=== PATIENT | female | born 1990 | race Caucasian/White ===

== ENCOUNTER 2020-05-08 21:28 | Emergency (ER) | payer MEDICAID ==
[~2020-05-08] VITALS: Ht 160 cm; Wt 61.4 kg
[~2020-05-08 21:28] MED LIST: FLUT16SP2 BOTHNARES; ONDA4TAB12 PO; ONDA4TAB6 PO
[2020-05-08] MEDS ORDERED: levetiracetam inj 1,000 MG in normal saline 100ml IV soln 90 ML IV ONE (22:15)
[2020-05-08] MEDS ORDERED: levetiracetam-NS 1000mg/100ml 100 ML IV ONE (22:19)
[2020-05-08] MEDS ORDERED: chlordiazePOXIDE 25mg capsule PO ONE (22:25)
[2020-05-08 23:13] LABS: EOSINOPHILS # (AUTO) 0.1 X10'3 (0-0.9); HEMATOCRIT 32.7 % (35.0-45.0); HEMOGLOBIN 11.1 g/dl (12.0-16.0); LYMPHOCYTES # (AUTO) 1.4 X10'3 (1.1-4.8); MEAN CORPUSCULAR HGB CONC 33.8 g/dL (33.0-36.5); MONOCYTES # (AUTO) 0.4 X10'3 (0-0.9); MONOCYTES % (AUTO) 5.5 % (2-12)
[2020-05-08 23:14] LABS: ALANINE AMINOTRANSFERASE 16 U/L (12-78); ALBUMIN 3.7 G/DL (3.4-5.0); ALBUMIN/GLOBULIN RATIO 1.1 (1.1-1.5); ALKALINE PHOSPHATASE 36 IU/L (46-116); ANION GAP 7 (8-16); ASPARTATE AMINO TRANSFERASE 16 U/L (10-37); BILIRUBIN,TOTAL 0.3 MG/DL (0.1-1.0); BLOOD UREA NITROGEN 8 MG/DL (7-18); BUN/CREATININE RATIO 10.4 (6.6-38.0); CALCIUM 8.5 MG/DL (8.5-10.1); CHLORIDE 107 MMOL/L (99-107); CREATININE 0.77 MG/DL (0.40-0.90); GLUCOSE 106 MG/DL (70-104); POTASSIUM 3.6 MMOL/L (3.5-5.1); SODIUM 141 MMOL/L (135-145); TOTAL CARBON DIOXIDE 27.5 MMOL/L (24-32); eGFR 87 ML/MIN
[2020-05-08 23:15] LABS: BASOPHILS % (AUTO) 0.6 % (0-1); LYMPHOCYTES % (AUTO) 18.4 % (21-51); MEAN CORPUSCULAR HEMOGLOBIN 28.5 PG (27.0-31.0); MEAN CORPUSCULAR VOLUME 84.2 FL (78-98); NEUTROPHILS # (AUTO) 5.5 X10'3 (1.8-7.7); NEUTROPHILS % (AUTO) 74.5 % (42-75); PLATELET COUNT 225 X10'3 (140-440); RED BLOOD COUNT 3.88 X10'6 (4.20-5.60); RED CELL DISTRIBUTION WIDTH 14.3 % (11.5-14.5); WHITE BLOOD COUNT 7.4 X10'3 (4.5-11.0)
[2020-05-08] MEDS ORDERED: KEP500T PO (23:37)
[2020-05-08] MEDS ORDERED: CHLO25CA10 PO (23:37)
[2020-05-08 23:54] VITALS: BP 117/73
== END 2020-05-08 23:58 | disposition home or self-care (01) ==
LOC: ER 21:29
DX: F13.230 Sedative, hypnotic or anxiolytic dependence with withdrawal, uncomplicated (principal); G40.909 Epilepsy, unspecified, not intractable, without status epilepticus; Z90.89 Acquired absence of other organs; Z88.2 Allergy status to sulfonamides; Z88.8 Allergy status to other drugs, medicaments and biological substances; Z79.899 Other long term (current) drug therapy
CPT/HCPCS: 80053; 85025; 96365; 99284; J1953

== ENCOUNTER 2020-10-23 22:05 | Emergency (ER) | payer MEDICAID ==
[~2020-10-23] VITALS: Ht 162.6 cm; Wt 62.9 kg
[~2020-10-23 22:05] MED LIST changes: +CHLO25CA10 PO; +KEP500T PO
[2020-10-23 22:16] VITALS: BP 108/82
[2020-10-24] MEDS ORDERED: quetiapine 100mg tablet PO ONE (02:03)
[2020-10-24] MEDS ORDERED: ALPRAZolam 0.5mg tablet PO ONE (02:05)
[2020-10-24] MEDS ORDERED: ESCI20TA PO (15:51)
[2020-10-24] MEDS ORDERED: HYDR50CA PO (15:51)
[2020-10-24] MEDS ORDERED: PROP10TA10 PO (15:51)
== END 2020-10-24 02:23 | disposition home or self-care (01) ==
LOC: ER 22:05
DX: F41.9 Anxiety disorder, unspecified (principal); F13.20 Sedative, hypnotic or anxiolytic dependence, uncomplicated; F19.90 Other psychoactive substance use, unspecified, uncomplicated; Z85.9 Personal history of malignant neoplasm, unspecified; Z90.89 Acquired absence of other organs; Z88.2 Allergy status to sulfonamides; Z88.8 Allergy status to other drugs, medicaments and biological substances; Z79.899 Other long term (current) drug therapy
CPT/HCPCS: 99283

== ENCOUNTER 2020-10-24 14:11 | Emergency (ER) | payer MEDICAID ==
[~2020-10-24] VITALS: Ht 160 cm; Wt 64.0 kg
[2020-10-24 14:18] VITALS: BP 118/75
[2020-10-24] MEDS ORDERED: morphine 4 MG/ML inj SYRINge IM ONE ×2 (15:15→16:15)
--- NOTE | 2020-10-24 15:35 | NUR ---
PATIENT C/O PAIN IN RIGHT HIP FROM FALL THIS MORNING. STATES PAIN IS IN RIGHT HIP AND RADIATES TO TAILBONE AND DOWN RIGHT LEG. PAIN IS 10/10. MEDICATED WITH MORPHINE IM.
[2020-10-24] MEDS ORDERED: PROP10TA10 PO (15:51)
[2020-10-24] MEDS ORDERED: HYDR50CA PO (15:51)
[2020-10-24] MEDS ORDERED: ESCI20TA PO (15:51)
== END 2020-10-24 17:20 | disposition home or self-care (01) ==
LOC: ER 14:12
DX: S70.01XA Contusion of right hip, initial encounter (principal); F41.9 Anxiety disorder, unspecified; Z88.8 Allergy status to other drugs, medicaments and biological substances; Z88.2 Allergy status to sulfonamides; Z79.899 Other long term (current) drug therapy; Z90.49 Acquired absence of other specified parts of digestive tract; W18.39XA Other fall on same level, initial encounter; Y93.89 Activity, other specified; Y92.89 Other specified places as the place of occurrence of the external cause; Y99.8 Other external cause status
CPT/HCPCS: 73502; 96372; 99284; J2270